=== PATIENT | female | born 1965 | race African-American/Black ===

== ENCOUNTER → 2019-07-30 | Outpatient (CLI) | payer OTHER ==
--- NOTE | 2019-07-30 11:53 | RADIOLOGY REPORT (SQ) ---
EXAM DESCRIPTION: MRI LT UPPER JOINT WITHOUT IMAGES COMPLETED DATE/TIME: 07/30/2019 9:38 am REASON FOR STUDY: M75.102 UNSPECIFIED ROTATOR CUFF TEAR OR RUPTURE OF LEFT SHOULDER, NOT SPEC M75.10 2 UNSP ROTATR-CUFF TEAR/RUPTR OF LEFT SHOULDER, NOT TR COMPARISON: None. TECHNIQUE: Non arthrogram noncontrast MRI left shoulder images acquired and stored on PACS. Multipla olya imaging to include fat sensitive sequences such as T1, water sensitive sequences such as FST2/STI R, cartilage sensitive sequences such as FSPD/gradient-echo sequences. LIMITATIONS: None. FINDINGS: BONE MARROW AND CORTEX: There is diffuse chondromalacia over the bony glenoid, with a subc ortical cyst lower half bony glenoid axial image 11 JOINT OR BURSAL EFFUSION: Small joint effusion. Few small loose bodies along the axillary recess and subcoracoid recess GLENO-HUMERAL ARTICULATION: Normal alignment. Advanced glenoid chondromalacia with subcortical cyst formation ACROMION AND AC JOINT: Type 2 with mild acromioclavicular joint hypertrophy narrowing the subacromia l space on sagittal image 9 and coronal image 10 ROTATOR CUFF AND INTERVAL: There is tendinopathy with increased signal along the anterior edge supras pinatus tendon, posterior edge distal infraspinatus tendon. No full-thickness tear. Changes are bes t shown on coronal images 7-12, sagittal images 4-8. No muscle atrophy No rotator interval tear. No rotator interval thickening to suggest adhesive capsulitis. LABRUM AND BICEPS LABRAL COMPLEX: Intra-articular long head biceps tendinopathy is present. Mild i ncreased intrinsic signal along its attachment from small superior labral tear best shown on sagittal image 11, axial images 7 through 9. Distal biceps in normal location in bicipital groove. REMAINDER OF LABRUM AND IGHL : No gross tear or paralabral cyst formation. Labral evaluation is less than optimal without joint distention. No thickening of IGHL to suggest adhesive capsulitis. PERIARTICULAR AND ADJACENT SOFT TISSUES: No masses or abnormal nodes. OTHER: No other significant finding. IMPRESSION: Osteoarthritis glenohumeral joint Intra-articular long head biceps tendinopathy with small superior labral tear Tendinopathy distal supra and infraspinatus tendons TECHNICAL DOCUMENTATION: JOB ID: [id number] [employer]- All Rights Reserved Reading location - IP/workstation name: [email or web address]
== END ==
LOC: RAD 08:56
PROVIDERS: ATTEND Internal Medicine Rheumatology
DX: M75.102 Unspecified rotator cuff tear or rupture of left shoulder, not specified as traumatic (principal); M19.012 Primary osteoarthritis, left shoulder; M75.82 Other shoulder lesions, left shoulder

== ENCOUNTER 2019-11-18 02:07 | Emergency (ER) | payer OTHER ==
[2019-11-18 06:24] LABS: APPEARANCE,URINE SLIGHTLY-CLOUDY; BILIRUBIN,URINE NEGATIVE (NEGATIVE); COLOR,URINE YELLOW; GLUCOSE, URINE NEGATIVE (NEGATIVE); KETONES,URINE NEGATIVE (NEGATIVE); LEUKOCYTE ESTERASE,URINE SMALL (NEGATIVE); NITRITE,URINE NEGATIVE (NEGATIVE); PROTEIN,URINE NEGATIVE (NEGATIVE); URINE SPECIFIC GRAVITY 1.028; UROBILINOGEN,URINE NEGATIVE mg/dL (<2.0)
[2019-11-18 06:26] VITALS: BP 140/75
[2019-11-18 06:55] LABS: ABSOLUTE EOSINOPHILS # (AUTO) 0.2 10^3/uL (0.0-0.6); ABSOLUTE MONOCYTES (AUTO) 0.6 10^3/uL (0.1-1.4); ABSOLUTE NEUT (AUTO) 7.3 10^3/uL (1.7-8.2); BASOPHILS % (AUTO) 0.4 % (0-2); EOSINOPHILS % (AUTO) 1.9 % (0-6); HEMATOCRIT 36.1 % (36.0-47.0); HEMOGLOBIN 11.7 g/dL (12.0-15.5); MEAN CORPUSCULAR HEMOGLOBIN 25.6 pg (27.0-33.4); MEAN CORPUSCULAR HGB CONC 32.4 g/dL (32.0-36.0); MEAN CORPUSCULAR VOLUME 79 fl (80-97); PLATELET COUNT 294 10^3/uL (150-450); RED BLOOD COUNT 4.56 10^6/uL (3.72-5.28); RED CELL DISTRIBUTION WIDTH 14.4 % (11.5-14.0); SEGMENTED NEUTROPHILS % (AUTO) 65.7 % (42-78); TOTAL CELLS COUNTED % (AUTO) 100 %; WHITE BLOOD COUNT 11.1 10^3/uL (4.0-10.5)
[2019-11-18 07:13] LABS: ALKALINE PHOSPHATASE 60 U/L (38-126); ANION GAP 10 (5-19); ASPARTATE AMINO TRANSFERASE 23 U/L (14-36); BILIRUBIN,DIRECT 0.3 mg/dL (0.0-0.4); BILIRUBIN,TOTAL 0.7 mg/dL (0.2-1.3); BLOOD UREA NITROGEN 13 mg/dL (7-20); CALCIUM 9.3 mg/dL (8.4-10.2); CARBON DIOXIDE 28 mmol/L (22-30); CHLORIDE 103 mmol/L (98-107); GLUCOSE 107 mg/dL (75-110); TOTAL PROTEIN 6.7 g/dL (6.3-8.2)
[2019-11-18] MEDS ORDERED: MAG HYDROX/AL HYDROX/SIMETH SUSP 30 ML UDCUP PO ONE (10:28)
[2019-11-18] MEDS ORDERED: LIDOCAINE 2% VISCOUS SOLN 15 ML UDCUP PO ONE (10:28)
[2019-11-18] MEDS ORDERED: METOCLOPRAMIDE HCL ORAL SOLN 10 MG/10 ML UDCUP PO ONE (10:29)
--- NOTE | 2019-11-18 10:31 | ER Document Report ---
ED Medical Screen (RME) - General Chief Complaint: Abdominal Pain Stated Complaint: ABDOMINAL PAIN Time Seen by Provider: 11/18/19 10:24 Primary Care Provider: KANE CASTELLANO MD [Primary Care Provider] - Follow up as needed TRAVEL OUTSIDE OF THE [place] IN LAST 30 DAYS: No - HPI Notes: 11/18/19 10:29 54-year-old female history of hypertension and hypothyroidism presents to the em ergency room with complaints of epigastric abdominal pain that has become progressively worse over the last 2 weeks. Patient reports that she ate a piece of bread yesterday, she then started to have epigastric right upper quadrant abdominal pain with some nausea and vomiting that radiates to her back. Patient states she is tried Tums without relief. She did go see her primary care provider for this issue within the last 2 weeks, they advised if that her symptoms become worse to go to the emergency room to get an ultrasound. Last bowel movement was 2 days ago, no melena, which is normal for her. Reports pain is 5 out of 5 after she eats. Denies any chest pain, shortness of breath, lower abdominal pain, fevers or chills I have greeted and performed a rapid initial assessment of this patient. A comprehensive ED assessment and evaluation of the patient, analysis of test results and completion of the medical decision making process will be conducted by additional ED providers. PHYSICAL EXAMINATION: GENERAL: Well-appearing, well-nourished and in no acute distress. NECK: Normal range of motion CV: s1, s2 regular LUNGS: No respiratory distress abd: RUQ, epigastric tenderness, no cva tenderness appreciated bilaterally Musculoskeletal: Normal range of motion NEUROLOGICAL: Normal speech, normal gait. SKIN: Warm, Dry, normal turgor, no rashes or lesions noted. - Related Data Allergies/Adverse Reactions: cortisone Allergy (Verified 11/18/19 03:31) hydrocodone [Hydrocodone] Allergy (Verified 11/18/19 03:31) oxycodone HCl [From Percocet] Allergy (Verified 11/18/19 03:31) Home Medications: HTN MEDS. HIGH LIPIDS Past Medical History - Social History Frequency of alcohol use: None Drug Abuse: None - Past Medical History Cardiac Medical History: Reports: Hx Hypertension, Hx Heart Murmur Past Surgical History: Reports: Hx Tubal Ligation - Immunizations Hx Diphtheria, Pertussis, Tetanus Vaccination: - unknown Physical Exam - Vital signs Vitals: Temp Pulse Resp BP Pulse Ox 98.0 F 94 20 156/96 H 97 11/18/19 02:21 11/18/19 02:21 11/18/19 02:21 11/18/19 02:21 11/18/19 02:21 Course - Vital Signs Vital signs: Temp Pulse Resp BP Pulse Ox 97.7 F 73 16 140/75 H 100 11/18/19 06:12 11/18/19 06:12 11/18/19 06:12 11/18/19 06:12 11/18/19 06:12 - Laboratory Result Diagrams: 11/18/19 06:17 11/18/19 06:17 Laboratory results interpreted by me: 11/18/19 11/18/19 11/18/19 05:25 06:17 06:17 WBC 11.1 H Hgb 11.7 L MCV 79 L MCH 25.6 L RDW 14.4 H Lipase 15.9 L Ur Leukocyte Esterase SMALL H Doctor's Discharge - Discharge Referrals: KANE CASTELLANO MD [Primary Care Provider] - Follow up as needed
--- NOTE | 2019-11-18 11:33 | RADIOLOGY REPORT (SQ) ---
EXAM DESCRIPTION: CHEST 2 VIEWS IMAGES COMPLETED DATE/TIME: 11/18/2019 11:07 am REASON FOR STUDY: substernal/epigastric abd pain COMPARISON: 06/22/2014 EXAM PARAMETERS: NUMBER OF VIEWS: two views TECHNIQUE: Digital Frontal and Lateral radiographic views of the chest acquired. RADIATION DOSE: NA LIMITATIONS: none FINDINGS: LUNGS AND PLEURA: No opacities, masses or pneumothorax. No pleural effusion. MEDIASTINUM AND HILAR STRUCTURES: No masses or contour abnormalities. HEART AND VASCULAR STRUCTURES: Heart normal size. No evidence for failure. BONES: No acute findings. HARDWARE: None in the chest. OTHER: No other significant finding. IMPRESSION: NO ACUTE RADIOGRAPHIC FINDING IN THE CHEST. TECHNICAL DOCUMENTATION: JOB ID: [id number] 2010 [employer]- All Rights Reserved Reading location - IP/workstation name: [email or web address]
--- NOTE | 2019-11-18 12:37 | RADIOLOGY REPORT (SQ) ---
EXAM DESCRIPTION: U/S ABDOMEN COMPLETE W/O DOP IMAGES COMPLETED DATE/TIME: 11/18/2019 12:17 pm REASON FOR STUDY: RUQ abd pain, epigastric pain COMPARISON: None. TECHNIQUE: Dynamic and static grayscale images acquired of the abdomen and recorded on PACS. Additio nal selected color Doppler and spectral images recorded. Note: Exam does not meet criteria for a complete duplex/doppler study LIMITATIONS: Study limited due to acoustical interference from fat or from air in the bowel. FINDINGS: PANCREAS: Poorly seen secondary to acoustical interference from fat or from air in the bow el. No visualized masses. Duct normal caliber as seen. LIVER: Echotexture is coarse with increased echogenicity consistent with fatty infiltration. LIVER VASCULATURE: Normal directional flow of the main portal vein and hepatic veins. GALLBLADDER: Gallstone(s). No pericholecystic fluid. No wall thickening. ULTRASOUND-DETECTED MICHELE'S SIGN: Negative. INTRAHEPATIC DUCTS AND COMMON DUCT: Poorly visualized. INFERIOR VENA CAVA: Normal flow. AORTA: No aneurysm. RIGHT KIDNEY: Normal size. Normal echogenicity. No solid or suspicious masses. No hydronephros is. No calcifications. LEFT KIDNEY: Normal size. Normal echogenicity. No solid or suspicious masses. No hydronephrosi s. No calcifications. SPLEEN:Normal size. No solid masses. PERITONEAL AND PLEURAL SPACES: No ascites or effusions. OTHER: No other significant finding. IMPRESSION: 1. Technical limitations. Cholelithiasis without evidence of acute cholecystitis. 2. Fatty liver. TECHNICAL DOCUMENTATION: JOB ID: [id number] 2010 [employer]- All Rights Reserved Reading location - IP/workstation name: [email or web address]
--- NOTE | 2019-11-18 14:49 | ER Document Report ---
ED General - General Chief Complaint: Abdominal Pain Stated Complaint: ABDOMINAL PAIN Time Seen by Provider: 11/18/19 10:24 Primary Care Provider: KANE CASTELLANO MD [NO LOCAL MD] - Follow up as needed TRAVEL OUTSIDE OF THE [place] IN LAST 30 DAYS: No - HPI Notes: Chief complaint: Epigastric pain, nausea and vomiting History of present illness: 54-year-old female followed for primary care by Marlin Turk came in last night with abdominal pain nausea and vomiting which was relieved with Zofran and a GI cocktail. Patient has no known history of gallbladder disease. She states however that she has had recurrent episodes si milar to her symptoms overnight as occurring after eating a fatty meal. There is gallbladder disease in her family. Patient is being treated for hypertension. She also has had some problems with rotator cuff of her left shoulder. She otherwise considers herself healthy. She denies use of alcohol, tobacco or drugs. - Related Data Allergies/Adverse Reactions: cortisone Allergy (Verified 11/18/19 03:31) hydrocodone [Hydrocodone] Allergy (Verified 11/18/19 03:31) oxycodone HCl [From Percocet] Allergy (Verified 11/18/19 03:31) Home Medications: HTN MEDS. HIGH LIPIDS Past Medical History - General Information source: Patient, [facility] Records - Social History Smoking Status: Former Smoker Frequency of alcohol use: None Drug Abuse: None Family History: None - Negative for clotting disorders - Past Medical History Cardiac Medical History: Reports: Hx Hypertension, Hx Heart Murmur Endocrine Medical History: Denies: Hx Diabetes Mellitus Type 1, Hx Diabetes Mellitus Type 2 Past Surgical History: Reports: Hx Tubal Ligation - Immunizations Hx Diphtheria, Pertussis, Tetanus Vaccination: - unknown Review of Systems - Review of Systems Notes: Constitutional: Negative for fever. HENT: Negative for sore throat. Eyes: Negative for visual changes. Cardiovascular: Negative for chest pain. Respiratory: Negative for shortness of breath. Gastrointestinal: As per HPI. Genitourinary: Negative for dysuria. Musculoskeletal: Negative for back pain. Skin: Negative for rash. Neurological: Negative for headaches, weakness or numbness. 10 point ROS negative except as marked above and in HPI. Physical Exam - Vital signs Vitals: Temp Pulse Resp BP Pulse Ox 98.0 F 94 20 156/96 H 97 11/18/19 02:21 11/18/19 02:21 11/18/19 02:21 11/18/19 02:21 11/18/19 02:21 - Notes Notes: GENERAL: Mildly obese middle-aged female appearing in no acute distress. SKIN: Good turgor no rashes. HEAD: Normocephalic atraumatic. EYES: PERRLA. EOMI. Conjunctivae and sclerae clear. EARS: CANALS AND TMS CLEAR. NOSE: CLEAR. MOUTH: Moist mucosa. Good dentition. No stridor or edema. No drooling. NECK: Supple. No masses or thyromegaly. No adenopathy. Carotids 2+ without bruits. No JVD. BACK: Symmetrical without tenderness. CHEST: Respirations unlabored. Breath sounds clear and symmetrical. HEART: Regular rhythm. No murmur gallop or rub. ABDOMEN: Soft, mildly obese, nontender without masses, organomegaly or rebound. Bowel sounds normally active. No bruits. GENITALIA: Deferred. EXTREMITIES: No edema. No calf tenderness. Cap refill less than 1.5 seconds. Dorsalis pedis and posterior tibial pulses 3+ and symmetrical. NEUROLOGICAL: GCS 15. Alert and oriented x3. Normal gait. Fluent speech. Cranial nerves II through XII intact. Sensorimotor and cerebellar normal. Normal tone. PSYCHIATRIC: Appropriate affect. Course - Re-evaluation Re-evalutation: 11/18/19 14:48 WBCs minimally elevated. Urinalysis unremarkable. Comprehensive metabolic profile and lipase are normal. Patient is nontender at this time. EKG showed no acute changes. She has multiple gallstones present on ultrasound with no ductal dilatation identified per radiologist. She appears to have symptomatic cholelithiasis with episodic biliary colic. I think she is stable for outpatient referral to surgery clinic. Findings, clinical impression and plan of treatment have been discussed with patient/family. Understanding of current findings and recommendations has been acknowledged by them and there is agreement regarding disposition and follow-up. - Vital Signs Vital signs: Temp Pulse Resp BP Pulse Ox 97.7 F 73 16 140/75 H 100 11/18/19 06:12 11/18/19 06:12 11/18/19 06:12 11/18/19 06:12 11/18/19 06:12 - Laboratory Result Diagrams: 11/18/19 06:17 11/18/19 06:17 Laboratory results interpreted by me: 11/18/19 11/18/19 11/18/19 05:25 06:17 06:17 WBC 11.1 H Hgb 11.7 L MCV 79 L MCH 25.6 L RDW 14.4 H Lipase 15.9 L Ur Leukocyte Esterase SMALL H - Diagnostic Test Radiology reviewed: Reports reviewed - Gallbladder ultrasound per radiologist: Multiple gallstones present without identified ductal dilatation. - EKG Interpretation by Me Additional EKG results interpreted by me: 11/18/19 14:50 Twelve-lead EKG reviewed by me contemporaneously: 1047 hrs. Indication for study: Epigastric pain Rhythm: Normal sinus Rate: 72 Intervals: Normal QRS axis: +[address]/T wave changes: Nonspecific anterolateral T wave changes without ST shift. Comparison with prior tracing: Comparison with prior tracing from 06/22/2014 shows no significant interval change Interpretation: Normal sinus rhythm with nonspecific anterolateral T wave changes unchanged from old tracing. Discharge - Discharge Clinical Impression: Cholelithiasis with biliary colic Condition: Stable Disposition: HOME, SELF-CARE Additional Instructions: Gallbladder Disease Your evaluation shows evidence of gallbladder disease. The gallbladder is a pouch under the liver which stores bile. Stones, infection, or irritation of the gallbladder cause attacks of pain. Certain foods -- fats in particular -- may provoke attacks. The usual treatment for gallbladder disease is surgical removal of the gallbladder -- called a cholecystectomy. You will be referred to a physician qualified to advise you on the best treatment for your problem. Hospitalization is not necessary. Take clear liquids only until you are painfree. After that, you should stay on a low-fat diet, with frequent SMALL meals. Call the doctor or return at once if you develop severe pain, repeated vomiting, fever, or jaundice (a yellow color in the skin and whites of the eyes). Return here as needed for new or worsening symptoms: Pain that is worsening or unimproved Uncontrolled vomiting High fever or shaking chills Overall worsening You have been provided information regarding surgical clinic for follow-up electively. You can also follow-up with your primary care physician. Prescriptions: Ondansetron [Zofran Odt 4 mg Tablet] 1 - 2 tab PO Q4H PRN #15 tab.rapdis PRN Reason: For Nausea/Vomiting Referrals: KANE CASTELLANO MD [NO LOCAL MD] - Follow up as needed LAURO ARVIZU MD [ACTIVE STAFF] - Follow up as needed
--- NOTE | 2019-11-18 19:50 | EKG REPORT ---
SEVERITY:- BORDERLINE ECG - SINUS RHYTHM BORDERLINE T ABNORMALITIES, ANT-LAT LEADS : Confirmed by: Fabricio Wahl 18-Nov-2019 19:50:12
== END 2019-11-18 15:23 | disposition home or self-care (01) ==
LOC: ER 02:07
DX: K80.80 Other cholelithiasis without obstruction (principal); R10.9 Unspecified abdominal pain; R11.2 Nausea with vomiting, unspecified; Z88.8 Allergy status to other drugs, medicaments and biological substances; I10 Essential (primary) hypertension; Z79.899 Other long term (current) drug therapy
CPT/HCPCS: 93005; 99285; 36415; 83690; 85025; 80053; 81001; 71046; 76700; 93010; J3490

== ENCOUNTER 2019-11-28 08:20 | Day surgery (SDC) | payer OTHER ==
[~2019-11-28 08:20] MED LIST: ACETAMINOPHEN 325 MG TABLET PO PRN; FENTANYL CITRATE INJ/PF 250 MCG/5 ML AMPULE ONE; IBUPROFEN 800 MG in NORMAL SALINE 250 ML IV PRN; LACTATED RINGERS 1000 ML IV PRN; LIDOCAINE 0.5% INJ-PF (5 MG/ML) 50 ML SDV SUBCUT PRN; MIDAZOLAM 2 MG/2 ML INJ ONE; PROPOFOL INJ 200 MG/20 ML VIAL IV ONE; SUGAMMADEX SODIUM 200 MG/2 ML SDV IV ONE; VANCOMYCIN HCL 1,000 MG in DEXTROSE 5%-WATER 250 ML IV PRN
[2019-11-28] MEDS ORDERED: ACETAMINOPHEN 325 MG TABLET ONE (09:18)
[2019-11-28 09:26] LABS: POTASSIUM 3.8 mmol/L (3.6-5.0)
[2019-11-28] MEDS ORDERED: EPHEDRINE SULFATE INJ 50 MG/1 ML AMPULE ONE (10:13)
[2019-11-28] MEDS ORDERED: BUPIVACAINE HCL 0.25 % INJ/PF (2.5 MG/1 ML) 30 ML VIAL ONE (10:17)
[2019-11-28] MEDS ORDERED: MEPERIDINE HCL/PF INJ 25 MG/1 ML DISP.SYRIN IV PRN (10:54)
[2019-11-28] MEDS ORDERED: DIPHENHYDRAMINE HCL 50 MG/ML VIAL IV PRN (10:54)
[2019-11-28] MEDS ORDERED: FENTANYL CITRATE INJ/PF 100 MCG/2 ML AMPUL IV PRN ×2 (10:54)
[2019-11-28] MEDS ORDERED: PROMETHAZINE HCL INJ 25 MG/1 ML VIAL IV PRN ×2 (10:54)
--- NOTE | 2019-11-28 11:49 | Discharge Summary ---
Discharge Summary (SDC) - Discharge Final Diagnosis: symptomatic gallstones Date of Surgery: 11/28/19 Discharge Date: 11/28/19 Forms: ASU Anesthesia D/C Instruction, Discharge POC-Surgical Service Treatment or Instructions: Discharge home. Diet as tolerated. Activity: No lifting greater than 10 pounds x 2 weeks. Follow-up with [place] [facility] in 7 to 10 days. Ultram 50 mg p.o. every 4 hours as needed for pain. Okay to shower starting Sunday. Prescriptions: Tramadol HCl [Ultram 50 mg Tablet] 50 mg PO Q4HP PRN #30 tab PRN Reason: For Pain Referrals: DOUG VELAZQUEZ MD [ACTIVE STAFF] - Discharge Diet: As Tolerated Respiratory Treatments at Home: Deep Breathing/Coughing, Incentive Spirometer Discharge Activity: Balance Activity w/Rest, No Lifting Over 10 Pounds, No Lifting/Push/Pulling Home Care Assistance: None Needed Report the Following to Your Physician Immediately: Shortness of Breath, Nausea, Vomiting, Increase in Pain, Yellow Skin, Fever over 101 Degrees, Unusual Bleeding, Redness
--- NOTE | 2019-11-28 11:52 | Operative Report ---
Nonrecallable Operative Report DATE OF SURGERY: 11/28/19 PREOPERATIVE DIAGNOSIS: Symptomatic cholelithiasis POSTOPERATIVE DIAGNOSIS: Same as above OPERATION: Laparoscopic cholecystectomy SURGEON: DOUG VELAZQUEZ 1ST DRAPERY AND UPHOLSTERY MEASURER: MARIANELA ARNOLD ANESTHESIA: GA TISSUE REMOVED OR ALTERED: Gallbladder COMPLICATIONS: None apparent ESTIMATED BLOOD LOSS: Minimal PROCEDURE: Drains/implants: None. Procedure in detail: After informed consent was obtained, the patient was brought to the operating room and laid in the supine position. The area of the abdomen was prepped and draped in a normal sterile fashion. A 15 blade scalpel was used to create a supraumbilical incision. The dissection was carried down to the fascia using sharp and blunt dissection. The linea alba fascia was incised sharply, the abdomen was entered sharply. The balloon trocar was inserted, and pneumoperitoneum was achieved. A subxiphoid 5 mm port was then placed under direct laparoscopic visualization. 2 more 5 mm ports were placed in the right upper quadrant in similar fashion. Atraumatic graspers were placed through the 5 mm ports. The gallbladder was retracted cephalad and laterally. Dissection was begun on the triangle of Calot. The cystic duct and cystic artery were fully visualized and skeletonize d, seeing the liver through the triangle. Once the critical view of safety was obtained, the cystic duct and cystic artery were clipped and cut with laparoscopic instruments. The gallbladder was then removed from the liver using Bovie electrocautery. The gallbladder was then grasped with a large clamp, and pulled out through the umbilicus. The camera was reinserted. The hilum was inspected. It was found to be free of any leakage of blood or bile. Once this was confirmed, the 5 mm trochars were removed under direct laparoscopic visualization. The supraumbilical trocar was removed, and pneumoperitoneum was relieved. The supraumbilical fascia was closed using 0 Vicryl suture in [id number] fashion. The overlying skin was closed in 4-0 Vicryl Rapide suture in subcuticular fashion. Dressings were placed, and the procedure was concluded. All sponge, instrument, needle counts were correct x2. Condition: Stable. Marianela Arnold PA-C was scrubbed and present the entirety the procedure. She assisted with all portions of the procedure including opening the abdomen, placement of the trochars, manipulation of the gallbladder, closure of the fascia, and closure of the skin.
[2019-11-28] MEDS: FENTANYL CITRATE INJ/PF 100 MCG/2 ML AMPUL IV PRN ×2 (12:10→12:15)
[2019-11-28] MEDS ORDERED: FENTANYL CITRATE INJ/PF 100 MCG/2 ML AMPUL ONE (12:13)
[2019-11-28] MEDS ORDERED: TRAMADOL HCL 50 MG TABLET PO PRN (12:43)
[2019-11-28] MEDS: TRAMADOL HCL 50 MG TABLET ONE ×3 (12:49→12:51)
[2019-11-28] MEDS ORDERED: ROCURONIUM BROMIDE INJ 50 MG/5 ML VIAL IV ONE (13:27)
[2019-11-28] MEDS ORDERED: DIPHENHYDRAMINE HCL 50 MG/ML VIAL ONE (13:27)
[2019-11-28] MEDS ORDERED: DEXAMETHASONE SOD PHOSPHATE INJ 4 MG/1 ML VIAL ONE (13:27)
[2019-11-28] MEDS ORDERED: METOCLOPRAMIDE HCL INJ/PF 10 MG/2 ML SDV ONE (13:27)
[2019-11-28] MEDS ORDERED: ONDANSETRON HCL INJ/PF 4 MG/2 ML SDV ONE (13:27)
[2019-11-28 14:36] VITALS: BP 169/104
== END 2019-11-28 14:00 | disposition home or self-care (01) ==
LOC: OROUT 08:20
PROVIDERS: ATTEND Surgery
DX: K81.1 Chronic cholecystitis (principal); Z88.5 Allergy status to narcotic agent; Z88.0 Allergy status to penicillin; I10 Essential (primary) hypertension; R73.03 Prediabetes; E03.9 Hypothyroidism, unspecified; Z87.891 Personal history of nicotine dependence; Z79.899 Other long term (current) drug therapy; Z03.818 Encounter for observation for suspected exposure to other biological agents ruled out
CPT/HCPCS: 36415; 82947; 84132; 88304 ×2; 47562; U0003; J2250; J3490 ×2; J1100; J1200; J3010 ×2; J2765; J2405; J7060; J7050; J2704; J3370; J1741; C9803; 790; 87635